=== PATIENT | female | born 1975 | race American Indian/Alaskan Native ===

== ENCOUNTER 2016-11-28 20:06 | Emergency (ER) | payer MEDICAID ==
[2016-11-28] MEDS ORDERED: DILANTIN ONE (23:24)
[2016-11-28] MEDS ORDERED: REGLAN IV ONE (23:37)
[2016-11-28] MEDS ORDERED: VALIUM IV ONE (23:37)
--- NOTE | 2016-11-28 23:41 | Emergency Department Report ---
ED General Adult HPI - General Chief complaint: Seizure Stated complaint: MED REFILL Time Seen by Provider: 11/28/16 23:23 Source: patient, RN notes reviewed, old records reviewed Mode of arrival: Wheelchair Limitations: No Limitations - History of Present Illness Initial comments: This is a 41-year-old female, previously unknown to me. She does not have a primary care doctor. Has a past medical history of migraine headaches, seizure disorder. Patient reports taking phenytoin, 300 mg each night, gabapentin, 600 mg every 8 hours for her seizures. Patient comes to the ER complaining of headache and sensation as if she will have a seizure. She reports that she took her last pill of phenytoin last night. She reports that she did not double up her doses, did not take any additional antibiotics, and took an Advil a few days ago. However, she has not had any dressing changes to her medications. She has not had a seizure. The patient complains of headache. The headache is frontal, and occipital. It is throbbing. It started in the morning and gradually got worse. The headache was not sudden or thunderclap in nature. It did not reach maximal intensity within an hour. There is no recent chiropractic manipulation, there is no recent trauma. The patient reports a worse headache a few months/years ago. There is no focal extremity weakness or numbness. She reports a sensation of sweating. -: Gradual Location: head Quality: aching Consistency: constant Improves with: none Worsens with: none Associated Symptoms: headaches, loss of appetite, malaise. denies: chest pain - Related Data Previous Rx's Medication Instructions Recorded Last Taken Type Gabapentin [Neurontin] 600 mg PO Q8H #90 tablet 09/15/16 11/27/16 Rx Phenytoin [Dilantin] 300 mg PO QHS #30 capsule 09/15/16 11/27/16 Rx Allergies Allergy/AdvReac Type Severity Reaction Status Date / Time ketorolac tromethamine Allergy Swelling Verified 12/09/15 19:33 [From Toradol] tramadol Allergy Swelling Verified 12/09/15 19:33 ED Review of Systems ROS: Stated complaint: MED REFILL Other details as noted in HPI ED Past Medical Hx - Past Medical History Previous Medical History?: Yes Hx Hypertension: No Hx CVA: No Hx Heart Attack/AMI: No Hx Congestive Heart Failure: No Hx Diabetes: No Hx Deep Vein Thrombosis: No Hx Pulmonary Embolism: No Hx GERD: Yes Hx Liver Disease: No Hx Renal Disease: No Hx Sickle Cell Disease: No (trait) Hx Arthritis: Yes Hx Headaches / Migraines: Yes Hx Seizures: Yes Hx Kidney Stones: No Hx Psychiatric Treatment: Yes (anxiety) Hx Asthma: No Hx COPD: No Hx Tuberculosis: No Hx Dementia: No Hx HIV: No Additional medical history: Blood clot in arm, superficial secondary to IV, fibroids. ovarian cyst - Surgical History Past Surgical History?: Yes Additional Surgical History: C- section - Social History Smoking Status: Unknown if ever smoked Substance Use Type: Non Opiate Pain, Prescribed - Medications Home Medications: Home Medications Medication Instructions Recorded Confirmed Last Taken Type Gabapentin [Neurontin] 600 mg PO Q8H #90 tablet 09/15/16 11/28/16 11/27/16 Rx Phenytoin [Dilantin] 300 mg PO QHS #30 capsule 09/15/16 11/28/16 11/27/16 Rx ED Physical Exam - General Limitations: No Limitations General appearance: alert, in no apparent distress - Head Head exam: Present: atraumatic, normocephalic - Eye Eye exam: Present: normal appearance, PERRL, EOMI. Absent: nystagmus - ENT ENT exam: Present: normal exam, normal orophraynx, mucous membranes moist - Neck Neck exam: Present: normal inspection, full ROM. Absent: tenderness, meningismus - Respiratory Respiratory exam: Present: normal lung sounds bilaterally. Absent: respiratory distress, wheezes, rales, rhonchi, stridor, chest wall tenderness - Cardiovascular Cardiovascular Exam: Present: regular rate, normal rhythm, normal heart sounds. Absent: bradycardia, tachycardia, irregular rhythm, systolic murmur, diastolic murmur, rubs, gallop - GI/Abdominal GI/Abdominal exam: Present: soft, normal bowel sounds. Absent: distended, tenderness, guarding, rebound, rigid, pulsatile mass - Extremities Exam Extremities exam: Present: normal inspection, full ROM, normal capillary refill. Absent: tenderness, pedal edema, joint swelling, calf tenderness - Back Exam Back exam: Present: normal inspection, full ROM, paraspinal tenderness. Absent : tenderness, CVA tenderness (R), CVA tenderness (L), muscle spasm, vertebral tenderness - Neurological Exam Neurological exam: Present: alert, oriented X3, normal gait, other (Extraocular movements intact. Tongue midline. No facial droop. Facial sensation intact to light touch in the V1, V2, V3 distribution bilaterally. 5 and 5 strength in 4 extremities.. Sensation is intact to light touch in 4 extremities.). Absent : motor sensory deficit - Psychiatric Psychiatric exam: Present: anxious - Skin Skin exam: Present: warm, dry, intact, normal color. Absent: rash ED Course Vital Signs 11/28/16 11/28/16 11/28/16 20:19 20:46 22:33 Temperature 97.5 F L Pulse Rate 88 Respiratory 20 Rate Blood Pressure 121/72 O2 Sat by Pulse 97 99 99 Oximetry 11/28/16 11/28/16 11/28/16 22:35 22:41 22:47 Temperature Pulse Rate 84 87 Respiratory 15 15 16 Rate Blood Pressure 105/72 105/72 O2 Sat by Pulse 99 100 99 Oximetry - Reevaluation(s) Reevaluation #1: 11/29/16 01:33 Differential diagnosis: Migraine headache, cluster headache, tension headache, muscular headache, incidental super therapeutic phenytoin level Assessment and plan: 41-year-old female with nonspecific headache. She is afebrile with reassuring vital signs. Has reproducible posterior muscular pain. Patient has frequent headaches, states she gets them almost every day. She has a GCS of 15, with an NIH score of 0. She walks with a steady gait. Patient is incidentally noted to have a supratherapeutic phenytoin level. Case was discussed with Gale at the [facility]. Recommends observation, liver function panel, indicates no need for multidose activated charcoal at this time. Patient will most likely require admission for supratherapeutic phenytoin level, the [facility] corroborates and recommends this. We will treat the patient symptomatically at this time. Noncontrast CT scan of the head is ordered to exclude gross structural disease. Reevaluation #2: 11/29/16 02:20 the patient is going to sign out AGAINST MEDICAL ADVICE. The patient is alert and oriented 3. She exhibits decision-making capacity. She is free from distracting injury. She refuses to sign AMA paperwork. The risks of leaving including , disability, paralysis, permanent loss of quality of life were discussed with the patient. She was able to verbalize these in her own words. She is counseled to return to the ER as soon as possible if and when she changes her mind. She is instructed to follow up with a primary care doctor or neurologist otherwise as soon as possible. the ama conversation is witnessed by nurse Eben Britt ED Medical Decision Making - Lab Data Result diagrams: 11/28/16 23:51 11/28/16 23:51 Vital Signs 11/28/16 11/28/16 11/28/16 20:19 20:46 22:33 Temperature 97.5 F L Pulse Rate 88 Respiratory 20 Rate Blood Pressure 121/72 O2 Sat by Pulse 97 99 99 Oximetry 11/28/16 11/28/16 11/28/16 22:35 22:41 22:47 Temperature Pulse Rate 84 87 Respiratory 15 15 16 Rate Blood Pressure 105/72 105/72 O2 Sat by Pulse 99 100 99 Oximetry Lab Results 11/28/16 11/28/16 11/28/16 Range/Units 21:31 23:12 23:51 WBC 6.5 (4.5-11.0) K/mm3 RBC 4.18 (3.65-5.03) M/mm3 Hgb 7.8 L (10.1-14.3) gm/dl Hct 24.8 L (30.3-42.9) % MCV 59 L (79-97) fl MCH 19 L (28-32) pg MCHC 32 (30-34) % RDW 22.7 H (13.2-15.2) % Plt Count 324 (140-440) K/mm3 Sodium (137-145) mmol/L Potassium (3.6-5.0) mmol/L Chloride (98-107) mmol/L Carbon Dioxide (22-30) mmol/L Anion Gap mmol/L BUN (7-17) mg/dL Creatinine (0.7-1.2) mg/dL Estimated GFR ml/min BUN/Creatinine Ratio % Glucose (65-100) mg/dL Calcium (8.4-10.2) mg/dL Magnesium (1.7-2.3) mg/dL Total Bilirubin (0.1-1.2) mg/dL Direct Bilirubin (0-0.2) mg/dL Indirect Bilirubin mg/dL AST (5-40) units/L ALT (7-56) units/L Alkaline Phosphatase (35-129) units/L Total Creatine Kinase (30-135) units/L Total Protein (6.3-8.2) g/dL Albumin (3.9-5) g/dL Albumin/Globulin Ratio % Urine HCG, Qual Negative (Negative) Phenytoin 38.4 H (10.0-20.0) mg/L 11/28/16 11/28/16 11/29/16 Range/Units 23:51 23:51 00:06 WBC (4.5-11.0) K/mm3 RBC (3.65-5.03) M/mm3 Hgb (10.1-14.3) gm/dl Hct (30.3-42.9) % MCV (79-97) fl MCH (28-32) pg MCHC (30-34) % RDW (13.2-15.2) % Plt Count (140-440) K/mm3 Sodium 138 (137-145) mmol/L Potassium 3.5 L (3.6-5.0) mmol/L Chloride 101.1 (98-107) mmol/L Carbon Dioxide 22 (22-30) mmol/L Anion Gap 18 mmol/L BUN 11 (7-17) mg/dL Creatinine 0.6 L (0.7-1.2) mg/dL Estimated GFR > 60 ml/min BUN/Creatinine Ratio 18.33 % Glucose 90 (65-100) mg/dL Calcium 8.6 (8.4-10.2) mg/dL Magnesium 1.9 (1.7-2.3) mg/dL Total Bilirubin < 0.2 (0.1-1.2) mg/dL Direct Bilirubin < 0.2 (0-0.2) mg/dL Indirect Bilirubin 0.0 mg/dL AST 22 (5-40) units/L ALT 36 (7-56) units/L Alkaline Phosphatase 72 (35-129) units/L Total Creatine Kinase 51 (30-135) units/L Total Protein 7.4 (6.3-8.2) g/dL Albumin 4.2 (3.9-5) g/dL Albumin/Globulin Ratio 1.3 % Urine HCG, Qual (Negative) Phenytoin (10.0-20.0) mg/L - EKG Data 11/29/16 01:34 normal sinus, 82 bpm, normal intervals, normal axis, low voltage , not morphologically consistent with STEMI, appears unchanged compared to prior EKG from September 2016. Critical care attestation.: If time is entered above; I have spent that time in minutes in the direct care of this critically ill patient, excluding procedure time. ED Disposition Clinical Impression: Headache Disposition: LEFT AGAINST MEDICAL ADVICE Is pt being admited?: No Does the pt Need Aspirin: No Condition: Undetermined Additional Instructions: As we discussed, you have left the hospital/emergency room AGAINST MEDICAL ADVICE. By leaving, you risked , disability, paralysis, permanent loss of quality of life. The ER is open 24 hours a day, 7 days a week. It never closes. Please return to the emergency room right away if and when you change your mind. If you decide not to return to the emergency room, please follow-up with the listed physician referrals as soon as possible. I recommend that you withhold your phenytoin/Dilantin until cleared by your primary care doctor or neurology specialist. I have listed numerous names, phone numbers, addresses of local neurology specialist. Referrals: DR KELLI [Other] - 3-5 Days HOANG RAMOS MD [Staff Physician] - 3-5 Days ROE AUGUST MD [Staff Physician] - 3-5 Days
[2016-11-29 00:19] LABS: Hematocrit 24.8 % (30.3-42.9); Hemoglobin 7.8 gm/dl (10.1-14.3); Mean Corpuscular HGB Conc 32 % (30-34); Platelet Count 324 K/mm3 (140-440); Red Blood Count 4.18 M/mm3 (3.65-5.03); White Blood Count 6.5 K/mm3 (4.5-11.0)
[2016-11-29 00:34] LABS: BUN/Creatinine Ratio 18.33; Blood Urea Nitrogen 11 mg/dL (7-17); Calcium 8.6 mg/dL (8.4-10.2); Carbon Dioxide 22 mmol/L (22-30); Chloride 101.1 mmol/L (98-107); Creatine Kinase 51 units/L (30-135); Glucose 90 mg/dL (65-100); Potassium 3.5 mmol/L (3.6-5.0); Sodium 138 mmol/L (137-145)
[2016-11-29 00:38] LABS: Mean Corpuscular Hemoglobin 19 pg (28-32); Mean Corpuscular Volume 59 fl (79-97); Red Cell Distribution Width 22.7 % (13.2-15.2)
--- NOTE | 2016-11-29 00:39 | Admit Criteria Form ---
Admission Criteria Documentation: SEIZURE Clinical Indications for Admission to Inpatient Care (Place 'X' for any and all applicable criteria): Admission is indicated for seizure and ANY ONE of the following(1)(2)(3)(4)(5): [X ]I. Inpatient admission required rather than observation care (Also use Seizure: Observation Care Criteria as appropriate) because of ANY ONE of the following: [ ]a) Altered mental status that is severe or persistent [ ]b) New focal neurologic deficit that is severe or persistent [ ]c) Metabolic disorder (eg, hypoglycemia, hyponatremia) that is severe or persistent [ ]d) Recurrent seizure [ ]e) Outpatient antiseizure regimen cannot be established (eg , patient cannot tolerate medication, initiation requires inpatient care) [ ]f) Need for ongoing intravenous infusion of antiseizure medication [ ]g) Cardiac arrhythmias of immediate concern [ ]h) Cerebral bleeding, hydrocephalus, or vasospasm monitoring (14) [ ]i) Increased intracranial pressure or cerebral edema monitoring (15) [X ]j) Other treatment or monitoring requiring inpatient admission [ ]II. Status epilepticus [A] or repetitive seizures not controlled with emergent treatment (6)(8) [ ]III. Brain disorder (eg, tumor, edema, and hydrocephalus) that requiring monitoring or intervention available only at inpatient level of care. [ ]IV. Brain insult (eg, severe trauma, stroke, drug toxicity, or withdrawal) that requires monitoring or intervention available only at inpatient level of care (10)(11) Extended stay beyond goal length of stay may be needed for (22) [ ]a) Complications of status epilepticus [ ]b) Refractory status epilepticus [ ]c) Etiology-specific therapy for conditions such as [employer]ANNING MANAG[employer] IT [employer] infection, head injury,eclampsia, severe metabolic abnormalities, and brain tumor [ ]d) Residual neurologic damage, [ ]e) Initiation of significant change to anticonvulsant treatment [ ]f) Older patients (65 years or older) [ ]g) Patient requiring intubation (eg, to protect airway) The original [employer] [facility] content created by [employer] has been revised. The portions of the content which have been revised are identified through the use of italic text or in bold, and [facility] [employer] has neither reviewed nor approved the modified material. All other unmodified content is copyright [facility] [employer]. Please see references footnoted in the original [facility] edition 2016
[2016-11-29 00:45] LABS: Alanine Aminotransferase 36 units/L (7-56); Albumin 4.2 g/dL (3.9-5); Albumin/Globulin Ratio 1.3 %; Alkaline Phosphatase 72 units/L (35-129); Anion Gap 18 mmol/L; Bilirubin,Total < 0.2 mg/dL (0.1-1.2); Total Protein 7.4 g/dL (6.3-8.2)
[2016-11-29 00:56] LABS: Bilirubin,Direct < 0.2 mg/dL (0-0.2)
[2016-11-29 02:27] VITALS: BP 126/70
== END 2016-11-29 02:22 | disposition left against medical advice (07) ==
LOC: ED 20:06
DX: G43.909 Migraine, unspecified, not intractable, without status migrainosus (principal); R53.81 Other malaise; R63.0 Anorexia; R56.9 Unspecified convulsions; K21.9 Gastro-esophageal reflux disease without esophagitis; M19.90 Unspecified osteoarthritis, unspecified site; F41.9 Anxiety disorder, unspecified; Z88.6 Allergy status to analgesic agent
CPT/HCPCS: 36415; 80048; 80074; 80185; 81025; 82550; 82962; 83735; 85027; 93005; 93010; 96374; 96375; 99284; J2765; J2930; J3360